=== PATIENT | female | born 1990 | race Caucasian/White ===

== ENCOUNTER 2023-12-20 06:20 | Emergency (ER) | payer BC, SELFPAY ==
[2023-12-20 06:29] VITALS: BP 141/95; BMI 24.6
--- NOTE | 2023-12-20 07:11 | ED.GENMED ---
History of Present Illness
General
Chief Complaint: Abdominal Symptoms
Source: patient
Exam Limitations: none
Time Seen by Provider: 12/20/23 06:44
Nursing documentation reviewed up to this point in time: agreed with
Travel History
Have you had any contact with someone who has COVID-19?: No
Do you have any symptoms of coronavirus? Fever > 100 degrees, chills, cough, shortness of breath, sore throat, loss of taste or smell, muscle aches, or headache?: No
History of Present Illness
History of Present Illness:
33-year-old female with no significant chronic medical issues presents to the emergency room for evaluation of abdominal pain. Patient reports that she had symptoms that lasted for a day or 2 in the right upper quadrant about 10 days ago. These
resolved but then later in the week about 6 days ago symptoms returned and have been essentially constant since that time. She reports pain has persisted in the right upper quadrant but now also in the right lower quadrant. No clear triggering or
relieving factors noted; no relation to meals she says. She reports some mild associated nausea no vomiting. No diarrhea or constipation. No dysuria, hematuria, change in urinary frequency. No vaginal bleeding or discharge; last menstrual period
3 weeks ago. She denies any fevers or chills. She denies similar symptoms in the past. She reports prior history of C-sections no other abdominal surgeries.
Review of Systems
Review of Systems
All Other Systems: ROS reviewed and negative except as documented in HPI and ROS
Constitutional: Denies fever or chills
EENT: Denies sore throat or runny nose
Respiratory: Denies cough or trouble breathing
Cardiac: Denies chest pain or palpitations
ABD/GI: Reports abdominal pain and nausea; Denies vomiting, diarrhea, constipated or anorexia
: Denies dysuria, frequency, flank pain or bleeding
Musculoskeletal: Denies neck pain or back pain
Neurological: Denies headache, weakness or numbness
Phy Exam
Physical Exam
Physical Exam:
General: Awake, alert, oriented x3; no acute distress
Head: Normocephalic, atraumatic
Eyes: Conjunctiva normal, sclera anicteric
Throat: Airway intact, handling secretions
Neck: Trachea midline, supple without meningismus
Lungs: Clear to auscultation bilaterally, no wheezing, rales, rhonchi
Heart: Tachycardia with regular rhythm, no murmurs, gallops, or rubs
Abd: Soft, non distended, mildly tender right upper and right lower quadrant without any peritoneal signs; no abdominal masses
Back: No CVA tenderness
Neuro: No gross deficits
Skin: no rash
Extremities: Warm and well-perfused
Scores
Heart Failure Risk
Heart Failure Risk Score: Not Applicable
Heart Score for Chest Pain Patients
STEMI patient?: Not applicable
Withdrawal Assessment of Alcohol
Withdrawal Assessment Completed?: Not applicable
Course
Orders/Labs/Results
Orders:
Orders
12/20/23 06:44
CT Abd/pel W Iv And Oral Contr Urgent
Comment:
Reason For Exam: RLQ abd pain
Iohexol [Omnipaque] See Protocol PO NOW STA
Test Result ONCE
12/20/23 07:16
0.9% Sodium Chloride 500 ml [Nss] 500 ml IV BOLUS
12/20/23 07:25
Complete Blood Count/With Diff Urgent
Comprehensive Metabolic Panel Urgent
HCG, Serum Qualitative Screen Urgent
Urinalysis Reflex To Culture Urgent
Date Specimen was Collected: 12/20/23
Time Specimen was Collected: 06:59
Urine Microscopic Reflex Cult Urgent
Abnormal Lab Results
12/20/23
07:25
Absolute Lymphs (auto) 0.5 L 10^3/uL
(1.2-3.4)
Neutrophils % 86.0 H %
(42.2-75.2)
Lymphocytes % 7.2 L %
(20.5-51.1)
Glucose 102 H mg/dl
(70-99)
Ur Occult Blood Reflex Trace A
(Negative)
Urine RBC 3-6 A /HPF
(0-2)
Urine Bacteria (Reflex) Few A
(Negative)
12/20/23 07:25
12/20/23 07:25
Vital Signs
Initial and Last Documented VS:
Initial Vital Signs
Temp Pulse Resp BP Pulse Ox
36.9 C 105 20 141/95 98
12/20/23 06:29 12/20/23 06:29 12/20/23 06:29 12/20/23 06:29 12/20/23 06:29
Last Documented Vital Signs
Temp Pulse Resp BP Pulse Ox
36.9 C 105 20 141/95 98
12/20/23 06:29 12/20/23 06:29 12/20/23 06:29 12/20/23 06:29 12/20/23 06:29
MDM/Problems Addressed
Differential Diagnosis Includes:
Cholelithiasis, cholecystitis, appendicitis, ovarian cyst, nephrolithiasis, UTI
MDM/Problems Addressed:
33-year-old female presents for evaluation of right-sided abdominal pain for the past week or so. Associate with nausea, no vomiting. Vital signs notable for marginal hypertension and mild tachycardia otherwise unremarkable. Physical exam as
documented. Plan to place an IV check labs including CBC and CMP, hCG. Will check urinalysis. Will send for CT of the abdomen pelvis. Monitor closely reassess after the above.
Lab review: CBC unremarkable, CMP shows no clinically significant abnormalities. hCG negative. Urinalysis no signs of infection. CT of the abdomen pelvis shows no acute process in the abdomen or pelvis, normal appendix. At this point no clear
emergent pathology; patient's pain is mild she has minimal tenderness. She is tolerating p.o. no clear indication for admission I think she can be discharged to follow-up as an outpatient with her primary doctor for further workup if symptoms
persist. She feels comfortable this plan. We spoke about return precautions all questions answered.
Acute Exacerbation and/or Progression of Chronic Illness:
Acutely hypertensive
Acute Exacerbation and/or Progression of Chronic Illness: HTN
*Radiology
Radiology exam reviewed: radiology read reviewed
*Pulse Oximetry
Patient hypoxic: no
*Critical Care Note
Total Time (30-74mins, 75-104mins- exclusive of procedures): Not Applicable
Data Reviewed
Review of Other/Old Records Reveals: Labs and Records
Source: patient
ED Attending Note
-
Portions of this chart may have been created with voice recognition software.� Occasional wrong word or��sound alike� substitutions may have occurred due to the inherent limitations of voice recognition software.
Discharge Plan
Departure
Patient Disposition: Home (Routine Discharge)
Date of Disposition: 12/20/23
Time of Disposition: 10:08
Patient with high blood pressure during this ER visit?: Yes
Discharge Problem:
Abdominal pain
Instructions: Abdominal Pain
Prescriptions:
No Action
vit-iron fum-folic ac 1 EACH tablet
1 ea PO DAILY
cetirizine [Zyrtec] 10 MG tablet
10 mg PO DAILY
sennosides-docusate sodium 1 TABLET tablet
1 tab PO DAILYPRN PRN (Reason: constipation) 0RF
ferrous sulfate [FeroSul] 325 MG tablet
325 mg PO BID 0RF
ibuprofen 600 MG tablet
600 mg PO Q4HPRN PRN (Reason: cramps) Qty: 90 0RF
Referrals:
Rogers Durant PA-C [Family Provider] - Follow up in 5-7 days
Haleigh Tamayo, DO [Active] - As needed (GI)
Activity Restrictions/Additional Instructions:
Thank you for visiting the Emergency Department at [facility].
1. Please schedule a follow up appointment as directed. Call first thing tomorrow morning to make an appointment.
2. If indicated, please take your medications as instructed and indicated on discharge paperwork.
3. If any of your symptoms do not improve, or persist, or become more severe within 6-12 hours, please return to the emergency department for further care.
4. Please return to the emergency department if you develop a headache, neck pain/stiffness, fever greater than 100.4F, chest pain, shortness of breath, persistent nausea, vomiting, slurred speech, difficulty walking, numbness/tingling, weakness,
signs of infection or any other symptoms that are worrisome to you.
Please call [phone] if you have any questions.
Interventions
Interventions:
*Risk Screen - Suicide Last Done: 12/20/23 06:29
*General Assessment Last Done: 12/20/23 06:29
*Neglect/Abuse Screening Last Done: 12/20/23 06:29
ED- Fall Risk Assessment Last Done: 12/20/23 07:15
*ED COVID-19 Vaccine History Last Done: 12/20/23 07:15
KT-Dbluxz-Rmztgrzazf Assessment Last Done: 12/20/23 07:15
[2023-12-20] MEDS: OMNIPAQUE 50 ML PO (07:17)
[2023-12-20] MEDS: NSS 500 IV (07:26)
[2023-12-20 07:45] LABS: Urine Albumin Negative (Neg - Trace); Urine Bilirubin Negative (Negative); Urine Character Clear (Clear); Urine Color Yellow; Urine Glucose Negative (Negative); Urine Ketone Negative (Negative); Urine Leukocyte Negative (Negative); Urine Nitrite Negative (Negative); Urine Occult Blood Trace (Negative); Urine Urobilinogen Negative (Neg - 1+)
[2023-12-20 07:53] LABS: % Basophils 0.6 % (0-2); % Immature Granulocytes 0.3 % (0-0.5); % Lymphocytes 7.2 % (20.5-51.1); % Monocytes 3.9 % (1.7-9.3); Absolute Eosinophils 0.1 10^3/uL (0-0.7); Absolute Lymphocytes 0.5 10^3/uL (1.2-3.4); Absolute Monocytes 0.3 10^3/uL (0.1-0.6); Absolute Neutrophils 5.9 10^3/uL (1.4-6.5); Hematocrit 38.8 % (37.0-47.0); Hemoglobin 13.3 g/dL (12.0-16.0); Mean Corp Hgb Conc. 34.3 g/dL (33.0-37.0); Mean Corpuscular Hgb 29.9 pg (27.0-31.0); Mean Corpuscular Volume 87.2 fL (81.0-99.0); Mean Platelet Volume 10.2 fL (7.4-10.4); Nucleated Red Blood Cells % 0 %; Platelet Count 237 10^3/uL (130-400); Red Blood Cell Count 4.45 10^6/uL (4.20-5.40); White Blood Cell Count 6.8 10^3/uL (4.8-10.8)
[2023-12-20 07:56] LABS: HCG, Serum Qualitative Screen Negative
[2023-12-20 08:13] LABS: Urine Squamous Cell 26-30 /LPF (Few)
[2023-12-20 08:14] LABS: Urine Bacteria Few (Negative)
[2023-12-20 08:15] LABS: ALT (SGPT) 21 U/L (0-35); AST (SGOT) 22 U/L (14-36); Albumin 4.2 g/dl (3.5-5.0); Alkaline Phosphatase 45 U/L (38-126); Blood Urea Nitrogen 13 mg/dl (7-17); Calcium 8.8 mg/dl (8.4-10.2); Carbon Dioxide 23 mmol/L (22-30); Chloride 104 mmol/L (98-107); Estimated Creatinine Clearance 114 ml/min; Glucose 102 mg/dl (70-99); Potassium 4.1 mmol/L (3.5-5.1); Sodium 136 mmol/L (135-145); Total Bilirubin 0.8 mg/dl (0.2-1.3); Total Protein 7.1 g/dl (6.3-8.2); eGFR > 60.00
[2023-12-20 11:05] VITALS: BP 132/80
== END 2023-12-20 11:09 | disposition home or self-care (01) ==
LOC: EMR 06:20
PROVIDERS: EMERGENCY PHYSICIAN Emergency Medicine; FAMILY PHYSICIAN Physician Assistant Medical
DX: R10.9 Unspecified abdominal pain (principal); R11.0 Nausea; I10 Essential (primary) hypertension; R00.0 Tachycardia, unspecified
CPT/HCPCS: 99285; 96360; 74177; 80053; 81003; 81015; 84703; 85025; Q9967

== ENCOUNTER → 2024-04-08 08:50 | Outpatient (REF) | payer BC, SELFPAY | LOC: WDC 08:50 | PROVIDERS: ATTENDING PHYSICIAN Nurse Practitioner Family; FAMILY PHYSICIAN Student in an Organized Health Care Education/Training Program | DX: N64.4 Mastodynia (principal) | CPT/HCPCS: 76642; 77062; 77066 ==

== ENCOUNTER → 2025-06-12 14:37 | Outpatient (REF) | payer BC, SELFPAY | LOC: HWRAD 14:37 | PROVIDERS: ATTENDING PHYSICIAN Nurse Practitioner Family; FAMILY PHYSICIAN Student in an Organized Health Care Education/Training Program | DX: E04.9 Nontoxic goiter, unspecified (principal) | CPT/HCPCS: 76536 ==